=== PATIENT | female | born 1990 | race Caucasian/White ===

== ENCOUNTER 2020-11-24 03:16 | Emergency (ER) | payer OTHER ==
[~2020-11-24] VITALS: Ht 157.5 cm; Wt 46.9 kg
--- NOTE | 2020-11-24 03:45 | NUR ---
pt c/o of epigatric, and sternal pain that radiates to her back. pt reports nausea, vomitting, headache and took a midal and symptoms got worse pt states diagnosis with ulcer years ago. attached to card/sp0/bp monitors, zoë brooke. bed in low, rails engaged. call light on lap.
[2020-11-24] MEDS ORDERED: ONDANSETRON ODT 4 MG ONE ×2 (03:52→04:12)
[2020-11-24] MEDS ORDERED: MAALOX/HYOSCYAMINE/LIDOCAINE 45 ML BTL ONE (03:52)
[2020-11-24 03:53] LABS: MEAN CORPUSCULAR HEMOGLOBIN 22.4 pg (27.0-34.8); MEAN CORPUSCULAR HGB CONC 31.8 g/dL (32.4-35.8); MEAN PLATELET VOLUME 8.1 fL (7.4-10.4); PLATELET COUNT 360 x10^3/uL (130-400); RED BLOOD COUNT 5.04 x10^6/uL (3.82-5.3); RED CELL DISTRIBUTION WIDTH 15.8 % (9.6-15.2)
[2020-11-24] MEDS ORDERED: ONDANSETRON ODT 4 MG PO ONE (04:00)
[2020-11-24] MEDS ORDERED: MAALOX/HYOSCYAMINE/LIDOCAINE 45 ML BTL PO ONE (04:00)
[2020-11-24 04:04] LABS: ALANINE AMINOTRANSFERASE 42 U/L (12-78); ALBUMIN 3.9 g/dL (3.4-5.0); ANION GAP 8 mmol/L (5-15); CALCIUM 8.2 mg/dL (8.5-10.1); CHLORIDE 108 mmol/L (98-107); CREATININE 0.61 mg/dL (0.55-1.02)
[2020-11-24 04:08] LABS: ALKALINE PHOSPHATASE 101 U/L (45-117); BILIRUBIN,TOTAL 0.5 mg/dL (0.2-1.0); TOTAL PROTEIN 7.9 g/dL (6.4-8.2)
--- NOTE | 2020-11-24 04:08 | NUR ---
PT VOMITTED AFTER DRINKING GI COCKTAIL.
[2020-11-24 04:12] LABS: <PLATELET ESTIMATE> ADEQUATE; <PLT MORPHOLOGY> NORMAL PLT MORPH; ANISOCYTOSIS 1+; BAND#(MANUAL) 1.38 x10^3/uL; BANDS%(MANUAL) 7 % (0-7); LYMPH#(MANUAL) 0.99 x10^3/uL (1-3.4); LYMPHS% (MANUAL) 5 % (22-44); MICROCYTOSIS 1+; MONOS% (MANUAL) 1 % (2-9); POLYCHROMASIA 1+; SEG#(MANUAL) 17.14 x10^3/uL (1.8-6.8); SEGS% (MANUAL) 87 % (42-75)
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
[2020-11-24] MEDS ORDERED: SODIUM CHLORIDE 0.9% 1,000ML IVBOLUS ONE ×2 (04:30→06:00)
[2020-11-24] MEDS ORDERED: POTASSIUM CHLORIDE 20 MEQ TAB.ER.PRT PO ONE (04:30)
[2020-11-24] MEDS ORDERED: SODIUM CHLORIDE FLUSH 10ML SYR IVF ONE (04:30)
[2020-11-24] MEDS ORDERED: POTASSIUM CHLORIDE 20 MEQ TAB.ER.PRT ONE (04:42)
[2020-11-24 04:53] LABS: MICROSCOPIC INDICATED
--- NOTE | 2020-11-24 05:06 | NUR ---
pt off unit in imaging.
--- NOTE | 2020-11-24 05:19 | NUR ---
Patient is resting comfortably in bed. Bed in lowest, rails engaged, call light on lap. VSS, ELEVATED HR. WCTM. VLADIMIRN
--- NOTE | 2020-11-24 05:29 | NUR ---
er md ordered another liter of ns due to patients hr at 111. awaiting first ns bag to be finished and md order.
[2020-11-24 06:29] VITALS: BP 105/66
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
[2020-11-24] MEDS ORDERED: OMNIPAQUE 350 MG/ML, 100ML BOTTLE ONE (06:42)
--- NOTE | 2020-11-24 06:47 | NUR ---
REPORT FROM MACKENZIE, ASSUME CARE OF PT AT THIS TIME.
--- NOTE | 2020-11-24 06:48 | NUR ---
gave report to emmett linder. transfer of care.
[2020-11-24] MEDS ORDERED: CEFTRIAXONE 1,000 MG in DEXTROSE 5% 50 ML IVPB ONE (08:00)
== END 2020-11-24 07:55 | disposition home or self-care (01) ==
LOC: ED 04:04
DX: R10.13 Epigastric pain (principal); R07.89 Other chest pain; D72.825 Bandemia; R11.2 Nausea with vomiting, unspecified
CPT/HCPCS: 36415; 71046; 74177; 80053; 81001; 83690; 84703; 85025; 87040; 87086; 93005; 96360; 96361; 99285; J7030; Q0162; Q9967

== ENCOUNTER 2020-11-26 07:20 | Emergency (ER) | payer OTHER ==
[~2020-11-26] VITALS: Ht 157.5 cm; Wt 47.3 kg
[2020-11-26 07:23] VITALS: BP 107/65
[2020-11-26 08:42] LABS: BASOPHILS % (AUTO) 1 % (0-1); EOSINOPHILS % (AUTO) 1 % (1-7); LYMPHOCYTES % (AUTO) 27 % (22-44); MEAN CORPUSCULAR HEMOGLOBIN 22.4 pg (27.0-34.8); MEAN CORPUSCULAR HGB CONC 31.4 g/dL (32.4-35.8); MEAN PLATELET VOLUME 8.2 fL (7.4-10.4); MONOCYTES % (AUTO) 8 % (2-9); NEUTROPHILS % (AUTO) 63 % (42-75); PLATELET COUNT 342 x10^3/uL (130-400); RED BLOOD COUNT 5.01 x10^6/uL (3.82-5.3); RED CELL DISTRIBUTION WIDTH 16.3 % (9.6-15.2)
[2020-11-26 08:56] LABS: ALBUMIN 3.7 g/dL (3.4-5.0); ANION GAP 5 mmol/L (5-15); CALCIUM 8.3 mg/dL (8.5-10.1); CHLORIDE 107 mmol/L (98-107)
[2020-11-26 08:59] LABS: ALANINE AMINOTRANSFERASE 63 U/L (12-78); ALKALINE PHOSPHATASE 89 U/L (45-117); BILIRUBIN,TOTAL 0.6 mg/dL (0.2-1.0); CREATININE 0.54 mg/dL (0.55-1.02); TOTAL PROTEIN 7.9 g/dL (6.4-8.2)
== END 2020-11-26 09:46 | disposition home or self-care (01) ==
LOC: ED 07:51
DX: R10.13 Epigastric pain (principal)
CPT/HCPCS: 36415; 80053; 83690; 85025; 99283